=== PATIENT | male | born 1955 | race Caucasian/White ===

== ENCOUNTER 2017-11-28 15:40 | Emergency (ER) | payer MEDICARE ==
[~2017-11-28] VITALS: Ht 177.8 cm; Wt 90.7 kg
[2017-11-28] MEDS ORDERED: ONDANSETRON HCL INJ 2 MG/ML VIAL IV STA (15:59)
[2017-11-28 16:07] LABS: BASOPHILS # (AUTO) 0.1 (0.0-0.1); BASOPHILS % 0.6 % (0.0-1.0); EOSINOPHILS # (AUTO) 0.4 (0.0-0.4); EOSINOPHILS % 4.5 % (0.0-6.0); HEMATOCRIT 42.3 % (38.2-49.6); LYMPHOCYTES # (AUTO) 2.4 (1.0-3.2); MEAN CORPUSCULAR HEMOGLOBIN 26.5 pg (28-32); MEAN CORPUSCULAR HGB CONC 33.1 g/dL (31-35); MONOCYTES % 11.2 % (4.4-11.3); NEUTROPHILS # (AUTO) 4.8 (2.1-6.9); NEUTROPHILS % 55.2 % (38.7-80.0); PLATELET COUNT 394 x10e3/uL (140-360); RED BLOOD COUNT 5.29 x10e6/uL (4.3-5.7); RED CELL DISTRIBUTION WIDTH 15.1 % (11.7-14.4)
[2017-11-28 16:20] LABS: ALANINE AMINOTRANSFERASE 28 IU/L (0-55); ALBUMIN/GLOBULIN RATIO 1.2 (0.8-2.0); ALKALINE PHOSPHATASE 61 IU/L (40-150); ANION GAP 14.6 mmol/L (8-16); BLOOD UREA NITROGEN 10 mg/dL (7-26); BUN/CREATININE RATIO 8 (6-25); CALCIUM 9.7 mg/dL (8.4-10.2); CARBON DIOXIDE 22 mmol/L (22-29); CHLORIDE 107 mmol/L (98-107); CREATININE, SERUM 1.18 mg/dL (0.72-1.25); EST GLOMERULAR FILTRATION RATE > 60 ML/MIN (60-); GLUCOSE 112 mg/dL (74-118); POTASSIUM 3.6 mmol/L (3.5-5.1); SODIUM 140 mmol/L (136-145)
[2017-11-28 16:31] LABS: AMYLASE 72 U/L (25-125); LIPASE 43 U/L (8-78)
== END 2017-11-28 17:57 | disposition left against medical advice (07) ==
LOC: ER 15:40
DX: R10.9 Unspecified abdominal pain (principal); R11.2 Nausea with vomiting, unspecified
CPT/HCPCS: 36415; 80053; 82150; 83690; 85025; 99282; J2405

== ENCOUNTER 2022-11-18 01:16 | Emergency (ER) | payer MEDICARE ==
[~2022-11-18] VITALS: Ht 177.8 cm; Wt 90.7 kg
[2022-11-18 03:06] VITALS: BP 123/57; PULSE 72; RESP 20; TEMP 98.7; O2SAT 98
[2022-11-21] MEDS ORDERED: PAXIL20 MG PO (14:04)
[2022-11-21] MEDS ORDERED: LIDODERM PATCH (14:04)
[2022-11-21] MEDS ORDERED: HYDROCODON-ACE1 EAC9 PO (14:04)
[2022-11-21] MEDS ORDERED: CLOMIPHENE CITR50 MG PO (14:04)
[2022-11-21] MEDS ORDERED: MULTI-VITAMIN1 EACH PO (14:04)
[2022-11-21] MEDS ORDERED: DIPHENHYDRAMI12.5 MG (14:04)
[2022-11-21] MEDS ORDERED: BUDESONIDE0.5 MG/2 M NEB (14:04)
[2022-11-21] MEDS ORDERED: BENZONATATE (14:04)
[2022-11-21] MEDS ORDERED: ATORVASTATIN CA20 MG PO (14:04)
[2022-11-21] MEDS ORDERED: TEARS LUBRICANT15 ML (14:04)
[2022-11-21] MEDS ORDERED: MUCINEX600 MG PO (14:04)
[2022-11-21] MEDS ORDERED: BUSPIRONE HCL5 MG PO (14:04)
[2022-11-21] MEDS ORDERED: PRIMIDONE125 MG (14:04)
[2022-11-21] MEDS ORDERED: CLONIDINE HCL0.1 MG PO (14:04)
[2022-11-21] MEDS ORDERED: ONDANSETRON ODT8 MG PO (14:04)
[2022-11-21] MEDS ORDERED: PREDNISONE5 MG PO (14:04)
[2022-11-21] MEDS ORDERED: ACETAZOLAMIDE250 MG PO (15:02)
[2022-11-21] MEDS ORDERED: MONTELUKAST SOD10 MG PO (15:02)
[2022-11-21] MEDS ORDERED: PROTONIX20 MG PO (15:02)
[2022-11-21] MEDS ORDERED: FEROSUL325 MG PO (15:02)
[2022-11-21] MEDS ORDERED: AMBIEN5 MG PO (15:02)
[2022-11-21] MEDS ORDERED: LACTULOSE20 GM/30 M PO (15:02)
[2022-11-21] MEDS ORDERED: ROBITUSSIN COU118 M4 PO (15:02)
[2022-11-21] MEDS ORDERED: VITAMIN B-121000 MCG PO (15:02)
[2022-11-21] MEDS ORDERED: SEROQUEL50 MG PO (15:02)
[2022-11-21] MEDS ORDERED: FLONASE ALLERG9.9 ML INH (15:02)
[2022-11-21] MEDS ORDERED: GLUCAGON EMERGEN1 MG (15:02)
[2022-11-21] MEDS ORDERED: MAG-OXIDE400 MG (15:02)
[2022-11-21] MEDS ORDERED: METOPROLOL TART25 MG PO (15:02)
[2022-11-21] MEDS ORDERED: CALCIUM CARBON500 MG PO (15:02)
[2022-11-21] MEDS ORDERED: ASCORBIC ACID500 M2 PO (15:02)
[2022-11-21] MEDS ORDERED: ACETAMINOPHEN500 MG (15:02)
[2022-11-21] MEDS ORDERED: ULTRAM 50MG50 MG PO (15:02)
[2022-11-21] MEDS ORDERED: ELIQUIS5 MG PO (15:02)
[2022-11-21] MEDS ORDERED: ASPIRIN81 MG PO (15:02)
[2022-11-21] MEDS ORDERED: THEOPHYLLI80 MG/151 PO (15:02)
[2022-11-21] MEDS ORDERED: IPRAT-ALBUT 0.5-3 ML (15:02)
[2022-11-21] MEDS ORDERED: LANTUS 3ML100 UNITS/ (15:02)
[2022-11-21] MEDS ORDERED: ALBUTEROL0.63 MG/3 NEB (15:02)
== END 2022-11-18 03:21 ==
LOC: ER 01:19
DX: R05.3 Chronic cough (principal); J84.9 Interstitial pulmonary disease, unspecified; I10 Essential (primary) hypertension; E78.5 Hyperlipidemia, unspecified; F31.9 Bipolar disorder, unspecified; Z87.19 Personal history of other diseases of the digestive system; Z86.73 Personal history of transient ischemic attack (TIA), and cerebral infarction without residual deficits
CPT/HCPCS: 71045; 99283